=== PATIENT | female | born 1995 | race Caucasian/White ===

== ENCOUNTER 2017-02-16 15:30 | Emergency (ER) | payer BC ==
--- NOTE | 2017-02-16 15:51 | EDPHY ---
H & P Stated Complaint: Mid abd cramping w/diarrhea and nausea x 1 hour;competed in [employer] today HPI/ROS: CHIEF COMPLAINT: Abdominal pain. HISTORY OF PRESENT ILLNESS: This patient is a healthy 21 year old female complaining of abdominal pain following completion of a half [employer] race earlier today. This race involves a 1.2 mile swim, 56 mile bicycle ride, and 13 mile run. She felt okay for one hour after, but then developed a dull ache in her abdomen. She had one episode of diarrhea. She returned to her apartment, but her pain worsened and she had another episode of diarrhea. The pain is bilateral across her abdomen around the level of her umbilicus. She endorses nausea, but has not vomited. She has no history of abdominal surgery. She has not urinated since the race. She does have an IUD in place, and states she is not . She took one dose of ibuprofen around 12:00 for pain relief. No fever, muscle aches (aside from ankle pain that is longstanding), chest pain, trouble breathing, headache, confusion. REVIEW OF SYSTEMS: A ten point review of systems was performed and is negative with the exception of the items mentioned in the HPI. - Personal History LMP (Females 10-55): IUD In Place Current Tetanus Diphtheria and Acellular Pertussis (TDAP): Yes - Medical/Surgical History PMH: Denies. Hx Asthma: No Hx Chronic Respiratory Disease: No Hx Diabetes: No Hx Cardiac Disease: No Hx Renal Disease: No Hx Cirrhosis: No Hx Alcoholism: No Hx HIV/AIDS: No Hx Splenectomy or Spleen Trauma: No Other PMH: acid reflux - Social History Smoking Status: Never smoked Additional Social History: Nonsmoker. Social alcohol use. Boyfriend at bedside. College student at [employer]. - Physical Exam Exam: General Appearance: Alert. Vital signs reviewed. BP 121/65. Eyes: Pupils equal and round, no conjunctival injection, no discharge. Anicteric. ENT, Mouth: Mucous membranes are slightly dry, no oropharyngeal erythema or edema. Neck: No lymphadenopathy, supple. Respiratory: Lungs are clear to auscultation; no wheezes, rales, or rhonchi. Cardiovascular: Regular rate and rhythm; no murmur, rub, or gallop. Gastrointestinal: Abdomen is soft with mild diffuse tenderness, no guarding, no masses or organomegaly, bowel sounds diminished. Skin: Warm and dry, no rashes on exposed skin, normal color. Back: Nontender to palpation over the thoracolumbar spine. No CVAT. Extremities: Left ankle wrapped with ice pack - patient states she has a stress fracture. No lower extremity edema, no calf or other muscle tenderness or swelling. Neurological: Alert and oriented. Moving all four extremities easily and equally. Psychiatric: Normal affect. Constitutional: Initial Vital Signs Temperature (C) 36.7 C 02/16/17 15:31 Heart Rate 71 02/16/17 15:31 Respiratory Rate 18 02/16/17 15:31 Blood Pressure 121/65 H 02/16/17 15:31 O2 Sat (%) 96 02/16/17 15:31 O2 Delivery Mode Room Air O2 (L/minute) 2 Allergies/Adverse Reactions: No Known Allergies Allergy (Verified 02/16/17 15:31) Home Medications: Medication Instructions Recorded Iud 02/16/17 Medical Decision Making ED Course/Re-evaluation: Plan for labs including CBC, BMP, BHCG, and CPK. Plan for fluids, relief of nausea. No hyperthermia. 17:06 Reassessed patient. She is feeling improved with fluid and administration of 4mg IV Zofran. She has attempted to eat. CK is 692--perhaps not peaked yet, but not indicative of significant rhabdomyolysis. I think that her abdominal pain and nausea is secondary to exertion. 18:25 Reassessed patient. She has had two liters of IV NS. She was able to keep her food down. Her abdomen is soft and nontender. She is discharged home with precautions. Differential Diagnosis: I considered ddx including but not limited to heat stroke, heat exhaustion, dehydration, renal injury or other sequelae of rhabdomyolysis, gastritis/ gastroenteritis. - Data Points Laboratory Results: Laboratory Results 02/16/17 16:10 02/16/17 16:10 Medications Given: Discontinued Medications Sodium Chloride (Ns) 1,000 mls @ 0 mls/hr IV EDNOW ONE; Wide Open PRN Reason: Protocol Stop: 02/16/17 16:00 Last Admin: 02/16/17 16:16 Dose: 1,000 mls Ondansetron HCl (Zofran) 4 mg IVP EDNOW ONE Stop: 02/16/17 16:01 Last Admin: 02/16/17 16:16 Dose: 4 mg Departure - Departure Disposition: Home, Routine, Self-Care Clinical Impression: Vomiting Qualifiers: Vomiting type: unspecified Vomiting Intractability: non-intractable Nausea presence: with nausea Qualified Code(s): R11.2 - Nausea with vomiting, unspecified Condition: Good Instructions: Acute Nausea and Vomiting (ED) Additional Instructions: If you have more vomiting, abdominal pain, any new or concerning symptoms-- return to the ED. Drink lots of fluids. I am referring you to a local primary care doctor, if needed you can schedule an appointment with her. Referrals: [place] Lopez [place] [place] - As per Instructions Report Scribed for: Jannet Harris Report Scribed by: Grace Casanova Date of Report: 02/16/17 Time of Report: 16:00 Physician Review and Approval Statement: 02/16/17 15:51 Portions of this note were transcribed by the medical reception. I, Dr. Jannet Harris, personally performed the history, physical exam, and medical decision- making; and confirmed the accuracy of the information in the transcribed note.
[2017-02-16] MEDS ORDERED: NS 1,000 ML IV ONE (15:59)
[2017-02-16] MEDS ORDERED: ONDANSETRON 4 MG/2 ML VIAL IVP ONE (16:00)
[2017-02-16 16:22] LABS: % IMMATURE GRANULYOCYTES 0.3 % (0.0-1.1); ABSOLUTE IMMATURE GRANULOCYTES 0.03 10^3/uL (0.00-0.10); ADD DIFF? NO; ADD MORPH? NO; ADD SCAN? NO; ATYPICAL LYMPHOCYTE FLAG 0 (0-99); FRAGMENT RBC FLAG 0 (0-99); HEMATOCRIT 40.6 % (38.0-47.0); LEFT SHIFT FLG 0 (0-99); LIPEMIA HEMOLYSIS FLAG 90 (0-99); MEAN CELL HEMOGLOBIN CONCENTR. 34.5 g/dL (32.4-36.7); MEAN CELL VOLUME 89.8 fL (81.5-99.8); MEAN PLATELET VOLUME 10.9 fL (8.7-11.7); PLATELET CLUMPS FLAG 0 (0-99); PLATELET COUNT 231 10^3/uL (150-400); RED BLOOD CELL COUNT 4.52 10^6/uL (4.18-5.33); RED CELL DISTRIBUTION WIDTH 12.3 % (11.5-15.2)
[2017-02-16 16:43] LABS: ANION GAP 15 mEq/L (8-16); CALCIUM 10.4 mg/dL (8.5-10.4); CARBON DIOXIDE 24 mEq/l (22-31); CHLORIDE 103 mEq/L (97-110); CREATININE 0.9 mg/dL (0.6-1.0); GLOMERULAR FILTRATION RATE > 60; GLUCOSE 99 mg/dL (70-100); SODIUM 142 mEq/L (134-144)
[2017-02-16 17:00] LABS: CK-MB INTERPRETATION NEGATIVE (NEGATIVE)
[2017-02-16 18:28] VITALS: BP 100/62; PULSE 57; RESP 16; TEMP 97.9; O2SAT 98
== END 2017-02-16 18:28 | disposition home or self-care (01) ==
DX: R11.2 Nausea with vomiting, unspecified (principal); E86.9 Volume depletion, unspecified
CPT/HCPCS: 96374; J2405

== ENCOUNTER 2017-03-18 08:19 | Emergency (ER) | payer BC ==
[2017-03-18 08:33] VITALS: RESP 16; TEMP 98.1
[2017-03-18] MEDS ORDERED: IBUPROFEN 600 MG TAB PO ONE (09:14)
[2017-03-18] MEDS ORDERED: DEXAMETHASONE 4 MG TAB PO ONE (09:14)
--- NOTE | 2017-03-18 09:23 | EDPHY ---
H & P Stated Complaint: SORE THROAT SINCE YESTERDAY HPI/ROS: Chief complaint: Sore throat History of present illness: This is a 21-year-old female who presents to the emergency department for a sore throat. Patient reports the onset of symptoms over the last day. She states in addition the throat feels swollen. She denies precipitating factors. Denies alleviating factors. Denies other associated signs or symptoms including no fevers, no difficulty talking, swallowing or breathing, no cough or chest congestion, no rash. - Personal History LMP (Females 10-55): IUD In Place Current Tetanus Diphtheria and Acellular Pertussis (TDAP): Yes Tetanus Vaccine Date: < 10 YEARS - Medical/Surgical History Hx Asthma: No Hx Chronic Respiratory Disease: No Hx Diabetes: No Hx Cardiac Disease: No Hx Renal Disease: No Hx Cirrhosis: No Hx Alcoholism: No Hx HIV/AIDS: No Hx Splenectomy or Spleen Trauma: No Other PMH: acid reflux - Social History Smoking Status: Never smoked - Physical Exam Exam: General Appearance: Alert, nontoxic. Eyes: Pupils equal and round no injection. ENT:Tympanic membranes, external auditory canals, external ears and surrounding soft tissue including over the mastoids are unremarkable. Nasopharynx is not injected. There is no rhinorrhea. Oropharynx is injected. There is no edema. There is no exudate. There is no asymmetry. The uvula is midline. No elevation of the tongue. There is no hoarseness, no drooling, no trismus, no stridor. Respiratory: Chest is non tender, lungs are clear to auscultation. Cardiac: regular rate and rhythm Musculoskeletal: Neck is supple and non tender. Extremities have full range of motion and are non tender. Skin: No rashes or lesions. Constitutional: Initial Vital Signs Temperature (C) 36.7 C 03/18/17 08:31 Heart Rate 62 03/18/17 08:31 Respiratory Rate 16 03/18/17 08:31 Blood Pressure 101/55 L 03/18/17 08:31 O2 Sat (%) 97 03/18/17 08:31 O2 Delivery Mode Room Air Allergies/Adverse Reactions: No Known Allergies Allergy (Verified 03/18/17 08:34) Home Medications: Medication Instructions Recorded Iud 02/16/17 ZYRTEC 03/18/17 Zantac 03/18/17 Medical Decision Making ED Course/Re-evaluation: Patient seen under the supervision of my secondary supervising physician Dr. Naman Davidson. Patient presents to the emergency department for sore throat. She appears to have a pharyngitis. Strep swab is negative. No evidence of complications. Patient will be symptomatically treated. Home care is discussed. Return precautions are given. Differential Diagnosis: Included but not limited to pharyngitis, strep pharyngitis, abscess formation of multiple etiologies - Data Points Laboratory Results: 03/18/17 03/18/17 Unknown 09:00 Group A Strep Screen NEGATIVE (NEGATIVE) Group A Strep DNA Pending Medications Given: Discontinued Medications Dexamethasone (Decadron) 10 mg PO EDNOW ONE Stop: 03/18/17 09:15 Last Admin: 03/18/17 09:19 Dose: 10 mg Ibuprofen (Motrin) 600 mg PO EDNOW ONE Stop: 03/18/17 09:15 Last Admin: 03/18/17 09:19 Dose: 600 mg Departure - Departure Disposition: Home, Routine, Self-Care Clinical Impression: Acute pharyngitis Qualifiers: Pharyngitis/tonsillitis etiology: unspecified etiology Qualified Code(s): J02.9 - Acute pharyngitis, unspecified Condition: Good Instructions: Pharyngitis (ED) Additional Instructions: Follow up with a primary care doctor for recheck Take ibuprofen 600mg three times a day for the next 2-3 days If symptoms worsen or new symptoms develop return to the emergency department Referrals: NONE *PRIMARY CARE P,. [Primary Care Provider] - As per Instructions [facility],. [Clinic] - As per Instructions Irene Cochran MD [Medical Doctor] - As per Instructions
[2017-03-18 09:48] VITALS: BP 112/76; PULSE 81; O2SAT 98
== END 2017-03-18 09:48 | disposition home or self-care (01) ==
DX: J02.9 Acute pharyngitis, unspecified (principal)